=== PATIENT | male | born 1955 | race Two or more races ===

== ENCOUNTER 2017-06-23 15:17 | Emergency (ER) | payer OTHER ==
[~2017-06-23] VITALS: Ht 172.7 cm; Wt 139.7 kg
--- NOTE | 2017-06-23 16:10 | EKG ---
[facility] [address] [place] [address] Test Date: 2017-06-23 Test Time: 15:39:45 Pat Name: SARAN BUI Department: Room: Gender: M Sfdc Consultant: : [id number] Requested By: ERAN MIX Order Number: [id number] Reading MD: Zacarias Mancilla MD Measurements Intervals [place] Rate: 81 P: [place]: QRS: 0 QRSD: 50 T: 26 QT: 318 QTc: 370 Interpretive Statements V-PACED RHYTHM Electronically Signed On 06-26-2017 14:15:23 [employer] by Zacarias Mancilla MD
[2017-06-23 16:17] LABS: BASO % 1 % (0-3); EOS % 9 % (0-3); HEMATOCRIT 36.5 % (39.0-53.0); HEMOGLOBIN 11.3 g/dL (13.0-17.5); LYMPH # 0.6 x10^3/uL (1.0-4.8); LYMPH % 13 % (24-48); MEAN CORPUSCULAR HEMOGLOBIN 26 pg (25-35); MEAN CORPUSCULAR HGB CONC 31 g/dL (31-37); MEAN CORPUSCULAR VOLUME 85 fL (79-100); MONO % 11 % (0-9); NEUT % 66 % (31-73); PLATELET COUNT 153 x10^3/uL (140-400); RED BLOOD COUNT 4.32 x10^6/uL (4.30-5.70); RED CELL DISTRIBUTION WIDTH 20.4 % (11.5-14.5); WHITE BLOOD COUNT 4.6 x10^3/uL (4.0-11.0)
--- NOTE | 2017-06-23 16:24 | RAD ---
Portable chest, 06/23/2017: History: Cough, shortness of breath A left-sided transvenous pacemaker is in place with 2 leads extending into the heart. The heart is mildly enlarged. There is calcific plaquing of the aorta. The pulmonary vascularity is within normal limits. No pulmonary infiltrate is seen. Blunting of the right lateral costophrenic angle is compatible scarring. A tiny amount of pleural fluid cannot be excluded. IMPRESSION: 1. Cardiomegaly. 2. No acute infiltrates.
[2017-06-23 16:29] LABS: CALCIUM 8.7 mg/dL (8.5-10.1); CREATININE 1.1 mg/dL (0.7-1.3); GFR 68.3; POTASSIUM 4.9 mmol/L (3.5-5.1)
[2017-06-23] MEDS ORDERED: BUMETANIDE 1 MG/4 ML VIAL. IV ONE (16:30)
[2017-06-23 16:34] LABS: ANISOCYTOSIS MOD; PLT ESTIMATE ADEQUATE (ADEQUATE); POLYCHROMASIA SLIGHT
--- NOTE | 2017-06-23 20:00 | PHYS DOC ---
Past Medical History Past Medical History: CAD, CHF, Heart Disease Additional Past Medical Histor: back problems Past Surgical History: Cholecystectomy, Colectomy, Hip Replacement, Knee Replacement, Pacemaker Additional Past Surgical Histo: back surgery Alcohol Use: Sober Drug Use: Cocaine, Marijuana Social History Narrative: Currently sober Adult General Chief Complaint Chief Complaint: SHORTNESS OF BREATH [facility] HPI Patient is a 61 year old [f__sex] who presents with [] Review of Systems Review of Systems Constitutional: Denies fever or chills [] Eyes: Denies change in visual acuity, redness, or eye pain [] HENT: Denies nasal congestion or sore throat [] Respiratory: Denies cough or shortness of breath [] Cardiovascular: No additional information not addressed in HPI [] GI: Denies abdominal pain, nausea, vomiting, bloody stools or diarrhea [] : Denies dysuria or hematuria [] Musculoskeletal: Denies back pain or joint pain [] Integument: Denies rash or skin lesions [] Neurologic: Denies headache, focal weakness or sensory changes [] Endocrine: Denies polyuria or polydipsia [] All other systems were reviewed and found to be within normal limits, except as documented in this note. Current Medications Current Medications Current Medications Medications (Trade) Dose Ordered Sig/Rita Start Time Stop Time Status Last Admin Dose Admin Bumetanide (Bumex) 1 mg 1X ONCE 06/23/17 16:30 06/23/17 16:31 DC 06/23/17 16:45 1 MG Allergies Allergies Allergies Coded Allergies Type Severity Reaction Last Updated Verified onion Allergy Intermediate 06/23/17 Yes peanut Allergy Intermediate 06/23/17 Yes Physical Exam Physical Exam Constitutional: Well developed, well nourished, no acute distress, non-toxic appearance. [] HENT: Normocephalic, atraumatic, bilateral external ears normal, oropharynx moist, no oral exudates, nose normal. [] Eyes: PERRLA, EOMI, conjunctiva normal, no discharge. [] Neck: Normal range of motion, no tenderness, supple, no stridor. [] Cardiovascular:Heart rate regular rhythm, no murmur [] Lungs & Thorax: Bilateral breath sounds clear to auscultation [] Abdomen: Bowel sounds normal, soft, no tenderness, no masses, no pulsatile masses. [] Skin: Warm, dry, no erythema, no rash. [] Back: No tenderness, no CVA tenderness. [] Extremities: No tenderness, no cyanosis, no clubbing, ROM intact, no edema. [] Neurologic: Alert and oriented X 3, normal motor function, normal sensory function, no focal deficits noted. [] Psychologic: Affect normal, judgement normal, mood normal. [] Current Patient Data Vital Signs Vital Signs Date Time Temp Pulse Resp B/P (MAP) Pulse Ox O2 Delivery O2 Flow Rate FiO2 06/23/17 18:33 80 20 116/63 (80) 95 Room Air 06/23/17 15:30 97.9 97.9 Lab Values Laboratory Tests Test 06/23/17 16:00 White Blood Count 4.6 x10^3/uL (4.0-11.0) Red Blood Count 4.32 x10^6/uL (4.30-5.70) Hemoglobin 11.3 g/dL (13.0-17.5) L Hematocrit 36.5 % (39.0-53.0) L Mean Corpuscular Volume 85 fL (79-100) Mean Corpuscular Hemoglobin 26 pg (25-35) Mean Corpuscular Hemoglobin Concent 31 g/dL (31-37) Red Cell Distribution Width 20.4 % (11.5-14.5) H Platelet Count 153 x10^3/uL (140-400) Neutrophils (%) (Auto) 66 % (31-73) Lymphocytes (%) (Auto) 13 % (24-48) L Monocytes (%) (Auto) 11 % (0-9) H Eosinophils (%) (Auto) 9 % (0-3) H Basophils (%) (Auto) 1 % (0-3) Neutrophils # (Auto) 3.1 x10^3uL (1.8-7.7) Lymphocytes # (Auto) 0.6 x10^3/uL (1.0-4.8) L Monocytes # (Auto) 0.5 x10^3/uL (0.0-1.1) Eosinophils # (Auto) 0.4 x10^3/uL (0.0-0.7) Basophils # (Auto) 0.0 x10^3/uL (0.0-0.2) Platelet Estimate Adequate (ADEQUATE) Polychromasia Slight Anisocytosis Mod Sodium Level 139 mmol/L (136-145) Potassium Level 4.9 mmol/L (3.5-5.1) Chloride Level 105 mmol/L (98-107) Carbon Dioxide Level 25 mmol/L (21-32) Anion Gap 9 (6-14) Blood Urea Nitrogen 17 mg/dL (8-26) Creatinine 1.1 mg/dL (0.7-1.3) Estimated GFR (Cockcroft-Gault) 68.3 Glucose Level 98 mg/dL (70-99) Calcium Level 8.7 mg/dL (8.5-10.1) Troponin I Quantitative 0.034 ng/mL (0.000-0.055) PL-Nua-J-Type Natriuretic Peptide 1304 pg/mL (0-124) H Laboratory Tests 06/23/17 16:00 Laboratory Tests 06/23/17 16:00 EKG EKG [] Radiology/Procedures Radiology/Procedures [] Course & Med Decision Making Course & Med Decision Making Pertinent Labs and Imaging studies reviewed. (See chart for details) [] Dragon Disclaimer Dragon Disclaimer This electronic medical record was generated, in whole or in part, using a voice recognition dictation system. Departure Departure Impression: Primary Impression: Congestive heart failure Additional Impression: Lower extremity edema Disposition: 01 HOME, SELF-CARE Condition: IMPROVED Referrals: UNKNOWN PCP NAME (PCP) Additional Instructions: You've been experiencing symptoms of your congestive heart failure. Your chest x -ray is reassuring tonight and diuresis is been continued. Take her Lasix as prescribed and follow-up with your skilled nursing medical survey patient overnight and continued care with the skilled nursing medical doctor. Return immediately for new severe or worsening symptoms Problem Qualifiers ERAN MIX MD Jun 23, 2017 20:00
[2017-06-23 20:20] VITALS: BP 126/65
[2017-06-24] MEDS ORDERED: BUMETANIDE 1 MG/4 ML VIAL. IV SCH (09:00)
== END 2017-06-23 20:20 | disposition home or self-care (01) ==
LOC: ER 15:17
DX: I50.9 Heart failure, unspecified (principal); I25.10 Atherosclerotic heart disease of native coronary artery without angina pectoris; F12.10 Cannabis abuse, uncomplicated; F14.10 Cocaine abuse, uncomplicated; Z90.49 Acquired absence of other specified parts of digestive tract; Z95.0 Presence of cardiac pacemaker; Z96.659 Presence of unspecified artificial knee joint; Z96.649 Presence of unspecified artificial hip joint; Z91.010 Allergy to peanuts; Z91.018 Allergy to other foods
CPT/HCPCS: 36415; 51702; 71010; 80048; 83880; 84484; 85025; 93005; 96374; 99285; J3490